=== PATIENT | male | born 1945 | race Two or more races ===

== ENCOUNTER 2017-09-13 14:08 | Inpatient (IN) | payer OTHER ==
[~2017-09-13 14:08] MED LIST: METOCLOPRAMIDE 10 MG INJ; ONDANSETRON 4 MG INJ
[2017-09-13] MEDS ORDERED: ROCURONIUM 50 MG INJ (14:51)
[2017-09-13] MEDS ORDERED: morphine SULFATE/PF (10 MG/10 ML) INJ (14:51)
[2017-09-13] MEDS ORDERED: PROPOFOL 20 ML (14:51)
[2017-09-13] MEDS ORDERED: CEFAZOLIN 1 GM INJ (14:51)
[2017-09-13] MEDS ORDERED: MIDAZOLAM 1 MG/ML 2 ML INJ (14:51)
[2017-09-13] MEDS ORDERED: FENTAnyl 50 MCG/ML VIAL (14:51)
[2017-09-13] MEDS ORDERED: POLYMYXIN/BACITRACIN 1L IRRIG ×2 (15:28→16:06)
[2017-09-13] MEDS ORDERED: ROPIVACAINE 0.5 % 30 ML VIAL (15:46)
[2017-09-13] MEDS ORDERED: PHENYLephrine (100 MCG/ML) 5ML SYG (15:47)
[2017-09-13] MEDS ORDERED: PHENYLephrine 10 MG INJ (15:47)
[2017-09-13] MEDS ORDERED: ACETAMINOPHEN 1000MG/100ML IV 100 ML (15:59)
[2017-09-13] MEDS ORDERED: METOCLOPRAMIDE 10 MG INJ (16:00)
[2017-09-13] MEDS: TRANEXAMIC ACID 1,000 MG/10 ML VIAL IV (16:00)
[2017-09-13] MEDS ORDERED: KETOROLAC 30 MG INJ (16:00)
[2017-09-13] MEDS ORDERED: ONDANSETRON 4 MG INJ (16:00)
[2017-09-13] MEDS ORDERED: DEXAMETHASONE 4 MG/ML 1 ML INJ (16:00)
[2017-09-13] MEDS: HETASTARCH 6% NACL 500 ML BAG IV* (16:22)
[2017-09-13] MEDS: POLYMYXIN/BACITRACIN 1L IRRIG IRR (16:22)
[2017-09-13] MEDS ORDERED: ACETAMINOPHEN 500 MG TAB PO (17:00)
[2017-09-13] MEDS ORDERED: EPHEDrine SULFATE 50 MG/5 ML SYG IV (17:00)
[2017-09-13] MEDS ORDERED: OXYCODONE/ACETAMINOPHEN (5/325) TAB PO ×2 (17:00)
[2017-09-13] MEDS ORDERED: METOCLOPRAMIDE 10 MG INJ IV (17:00)
[2017-09-13] MEDS ORDERED: HYDROmorphONE (0.2 MG/ML) 10ML SYG IV ×3 (17:00)
[2017-09-13] MEDS ORDERED: morphine 2 MG INJ IV ×2 (17:00)
[2017-09-13] MEDS ORDERED: ONDANSETRON 4 MG INJ IV (17:00)
[2017-09-13] MEDS ORDERED: HYDROmorphONE 0.5 MG/0.5 ML SYG IV ×2 (17:00)
[2017-09-13] MEDS ORDERED: DIPHENHYDRAMINE 50 MG INJ IV (17:00)
[2017-09-13] MEDS ORDERED: hydrALAzine 20 MG INJ IV (17:00)
[2017-09-13] MEDS ORDERED: FENTAnyl 50 MCG/ML VIAL IV ×3 (17:00)
[2017-09-13] MEDS ORDERED: ALBUMIN HUMAN 5% 250 ML IV (17:00)
[2017-09-13] MEDS ORDERED: HYDROCODONE/APAP (5/325) TAB PO (17:00)
[2017-09-13] MEDS ORDERED: NALOXONE (0.4 MG/ML) INJ IV (17:00)
[2017-09-13] MEDS ORDERED: MEPERIDINE 25 MG INJ IV (17:00)
[2017-09-13] MEDS ORDERED: NALBUPHINE HCL (10 MG/1 ML) INJ IV (17:00)
[2017-09-13] MEDS ORDERED: LABETALOL HCL 20MG INJ IV (17:00)
[2017-09-13] MEDS ORDERED: HETASTARCH 6% NACL 500 ML (17:10)
[2017-09-13] MEDS: CEFAZOLIN 1 GM/50 ML (PMX) 50 ML IVPB ×2 (18:04→21:52)
[2017-09-13 18:24] LABS: HEMATOCRIT 36.2 % (42.0-52.0); HEMOGLOBIN 12.2 g/dl (14.0-18.0)
[2017-09-13 18:47] LABS: ANION GAP 10 (8-16); CARBON DIOXIDE 24 mmol/L (21-31); CHLORIDE 109 mmol/L (97-110); GLUCOSE 103 mg/dl (70-220)
[2017-09-13 18:51] LABS: BLOOD UREA NITROGEN 20 mg/dl (7-20); CREATININE 0.74 mg/dl (0.61-1.24); POTASSIUM 4.1 mmol/L (3.5-5.1); SODIUM 139 mmol/L (135-144)
[2017-09-13 18:53] LABS: CALCIUM 7.8 mg/dl (8.4-10.2)
[2017-09-13] MEDS: LACTATED RINGER'S 1,000 ML IV (21:43)
[2017-09-14] MEDS: ONDANSETRON 4 MG INJ IV (04:06)
[2017-09-14] MEDS: DIPHENHYDRAMINE 50 MG INJ IV (04:09)
[2017-09-14 05:08] LABS: ADD MAN DIFF? NO
[2017-09-14 05:11] LABS: BASOPHILS % 0.1 % (0.0-2.0); HEMATOCRIT 34.9 % (42.0-52.0); HEMOGLOBIN 11.6 g/dl (14.0-18.0); LYMPHOCYTES # 0.7 10^3/ul (0.8-2.9); LYMPHOCYTES % 4.6 % (15.0-51.0); MEAN CORPUSCULAR HEMOGLOBIN 29.7 pg (29.0-33.0); MEAN CORPUSCULAR HGB CONC 33.2 g/dl (32.0-37.0); MEAN CORPUSCULAR VOLUME 89.3 fl (82.0-101.0); MEAN PLATELET VOLUME 8.9 fl (7.4-10.4); MONOCYTE # 0.4 10^3/ul (0.3-0.9); MONOCYTES % 2.5 % (0.0-11.0); NEUTROPHIL # 13.6 10^3/ul (1.6-7.5); NEUTROPHILS % 92.3 % (39.0-77.0); PLATELET COUNT 276 10^3/UL (140-415); RED BLOOD COUNT 3.91 10^6/ul (4.70-6.10); RED CELL DISTRIBUTION WIDTH 15.6 % (11.5-14.5)
[2017-09-14 05:11] LABS: WHITE BLOOD COUNT 14.7 10^3/ul (4.8-10.8)
[2017-09-14] MEDS: CEFAZOLIN 1 GM/50 ML (PMX) 50 ML IVPB ×2 (05:30→13:35)
[2017-09-14] MEDS: PANTOPRAZOLE (EC) 40 MG TAB PO (05:30)
[2017-09-14 05:44] LABS: ALANINE AMINOTRANSFERASE 33 IU/L (13-69); ALBUMIN/GLOBULIN RATIO 0.96; ALKALINE PHOSPHATASE 65 IU/L (42-121); ANION GAP 12 (8-16); ASPARTATE AMINO TRANSFERASE 31 IU/L (15-46); BILIRUBIN,INDIRECT 0.1 mg/dl (0-1.1); BILIRUBIN,TOTAL 0.1 mg/dl (0.2-1.3); BLOOD UREA NITROGEN 27 mg/dl (7-20); CARBON DIOXIDE 25 mmol/L (21-31); CHLORIDE 106 mmol/L (97-110); CREATININE 0.73 mg/dl (0.61-1.24); GLUCOSE 189 mg/dl (70-220); POTASSIUM 4.4 mmol/L (3.5-5.1); SODIUM 139 mmol/L (135-144); TOTAL PROTEIN 6.1 g/dl (6.1-8.1)
[2017-09-14] MEDS: LACTATED RINGER'S 1,000 ML IV (08:50)
[2017-09-14] MEDS: GABAPENTIN 100 MG CAP PO ×2 (09:05→21:11)
[2017-09-14] MEDS: FOLIC ACID 1 MG TAB PO (09:05)
[2017-09-14] MEDS ORDERED: morphine 2 MG INJ IV (09:30)
[2017-09-14] MEDS: ASPIRIN (EC) 325 MG TAB PO ×2 (10:20→21:10)
[2017-09-14] MEDS: HYDROCODONE/APAP (5/325) TAB PO (18:43)
[2017-09-14] MEDS: ATORVASTATIN 20 MG TAB PO (21:10)
[2017-09-14] MEDS: TAMSULOSIN (SR) 0.4 MG CAP PO (21:11)
[2017-09-15] MEDS: HYDROCODONE/APAP (5/325) TAB PO ×2 (04:30→11:26)
[2017-09-15] MEDS: PANTOPRAZOLE (EC) 40 MG TAB PO ×2 (05:05→20:43)
[2017-09-15 05:53] LABS: ADD MAN DIFF? NO
[2017-09-15 06:00] LABS: BASOPHILS % 0.3 % (0.0-2.0); EOSINOPHILS # 0.2 10^3/ul (0.0-0.5); EOSINOPHILS % 1.6 % (0.0-7.0); HEMATOCRIT 30.1 % (42.0-52.0); HEMOGLOBIN 10.3 g/dl (14.0-18.0); LYMPHOCYTES # 1.7 10^3/ul (0.8-2.9); LYMPHOCYTES % 14.6 % (15.0-51.0); MEAN CORPUSCULAR HEMOGLOBIN 30.1 pg (29.0-33.0); MEAN CORPUSCULAR HGB CONC 34.2 g/dl (32.0-37.0); MEAN PLATELET VOLUME 9.3 fl (7.4-10.4); MONOCYTE # 1.1 10^3/ul (0.3-0.9); MONOCYTES % 9.2 % (0.0-11.0); NEUTROPHIL # 8.8 10^3/ul (1.6-7.5); NEUTROPHILS % 73.8 % (39.0-77.0); PLATELET COUNT 236 10^3/UL (140-415); RED BLOOD COUNT 3.42 10^6/ul (4.70-6.10); RED CELL DISTRIBUTION WIDTH 15.5 % (11.5-14.5)
[2017-09-15 06:49] LABS: ANION GAP 8 (8-16); BLOOD UREA NITROGEN 27 mg/dl (7-20); CALCIUM 7.4 mg/dl (8.4-10.2); CARBON DIOXIDE 26 mmol/L (21-31); CHLORIDE 104 mmol/L (97-110); CREATININE 0.72 mg/dl (0.61-1.24); GLUCOSE 99 mg/dl (70-220); POTASSIUM 3.9 mmol/L (3.5-5.1); SODIUM 134 mmol/L (135-144)
[2017-09-15] MEDS: ASPIRIN (EC) 325 MG TAB PO ×2 (08:47→20:43)
[2017-09-15] MEDS: FOLIC ACID 1 MG TAB PO (08:47)
[2017-09-15] MEDS: GABAPENTIN 100 MG CAP PO ×2 (08:47→20:44)
[2017-09-15 16:15] LABS: ADD UMIC YES; UR ASCORBIC ACID NEGATIVE (NEGATIVE); UR BILIRUBIN (Dip) NEGATIVE (NEGATIVE); UR BLOOD (Dip) 2+ mg/dL (NEGATIVE); UR CLARITY CLEAR (CLEAR); UR COLOR STRAW (YELLOW); UR GLUCOSE (Dip) NEGATIVE (NEGATIVE); UR KETONES (Dip) NEGATIVE (NEGATIVE); UR LEUKOCYTE ESTERASE (Dip) NEGATIVE Leu/ul (NEGATIVE); UR NITRITE (Dip) NEGATIVE (NEGATIVE); UR RBC 3 /HPF (0-5); UR TOTAL PROTEIN (Dip) NEGATIVE (NEGATIVE); UR UROBILINOGEN (Dip) NEGATIVE (NEGATIVE); UR WBC 0 /HPF (0-5)
[2017-09-15] MEDS ORDERED: BISACODYL (EC) 5 MG TAB PO (19:30)
[2017-09-15] MEDS: POLYETHYLENE GLYCOL 17 GM PACKET PO (20:43)
[2017-09-15] MEDS: TAMSULOSIN (SR) 0.4 MG CAP PO (20:43)
[2017-09-15] MEDS: ATORVASTATIN 20 MG TAB PO (20:43)
[2017-09-16] MEDS: PANTOPRAZOLE (EC) 40 MG TAB PO (06:04)
[2017-09-16 06:13] LABS: ADD MAN DIFF? NO
[2017-09-16 06:19] LABS: WHITE BLOOD COUNT 9.5 10^3/ul (4.8-10.8)
[2017-09-16 06:19] LABS: BASOPHIL # 0.1 10^3/ul (0.0-0.1); BASOPHILS % 0.6 % (0.0-2.0); EOSINOPHILS # 0.3 10^3/ul (0.0-0.5); EOSINOPHILS % 2.8 % (0.0-7.0); HEMATOCRIT 31.8 % (42.0-52.0); LYMPHOCYTES # 1.3 10^3/ul (0.8-2.9); LYMPHOCYTES % 14.1 % (15.0-51.0); MEAN CORPUSCULAR HEMOGLOBIN 30.2 pg (29.0-33.0); MEAN CORPUSCULAR HGB CONC 34.6 g/dl (32.0-37.0); MEAN CORPUSCULAR VOLUME 87.4 fl (82.0-101.0); MEAN PLATELET VOLUME 9.6 fl (7.4-10.4); MONOCYTES % 10.4 % (0.0-11.0); NEUTROPHIL # 6.8 10^3/ul (1.6-7.5); NEUTROPHILS % 71.7 % (39.0-77.0); PLATELET COUNT 236 10^3/UL (140-415); RED BLOOD COUNT 3.64 10^6/ul (4.70-6.10); RED CELL DISTRIBUTION WIDTH 15.2 % (11.5-14.5)
[2017-09-16 06:52] LABS: ANION GAP 11 (8-16); BLOOD UREA NITROGEN 16 mg/dl (7-20); CALCIUM 8.3 mg/dl (8.4-10.2); CARBON DIOXIDE 26 mmol/L (21-31); CHLORIDE 101 mmol/L (97-110); CREATININE 0.66 mg/dl (0.61-1.24); GLUCOSE 126 mg/dl (70-220); POTASSIUM 3.8 mmol/L (3.5-5.1); SODIUM 134 mmol/L (135-144)
[2017-09-16] MEDS: GABAPENTIN 100 MG CAP PO (09:09)
[2017-09-16] MEDS: FOLIC ACID 1 MG TAB PO (09:09)
[2017-09-16] MEDS: POLYETHYLENE GLYCOL 17 GM PACKET PO (09:09)
[2017-09-16] MEDS: ASPIRIN (EC) 325 MG TAB PO (09:09)
[2017-09-16] MEDS: HYDROCODONE/APAP (5/325) TAB PO ×2 (09:41→14:56)
== END 2017-09-16 15:40 | disposition home health service (06) | DRG 470 ==
LOC: REC 14:08 → MS1 20:10
PROC: 0SRC069 Replacement of Right Knee Joint with Oxidized Zirconium on Polyethylene Synthetic Substitute, Cemented, Open Approach (ICD-10-PCS; principal; 2017-09-13 15:37)
DX: M17.11 Unilateral primary osteoarthritis, right knee (principal); G62.9 Polyneuropathy, unspecified; E78.5 Hyperlipidemia, unspecified; N40.0 Benign prostatic hyperplasia without lower urinary tract symptoms; D72.829 Elevated white blood cell count, unspecified
CPT/HCPCS: 80048; 80053; 81001; 85014; 85018; 85025; 87086; 88304; 88311; 97110; 97116; 97163; 97167; 97530

== ENCOUNTER 2018-04-10 19:55 | Inpatient (IN) | payer OTHER ==
[2018-04-11] MEDS: HYDROCODONE/APAP (5/325) TAB PO ×3 (00:53→19:48)
[2018-04-11 04:06] LABS: ADD MAN DIFF? NO
[2018-04-11 04:08] LABS: BASOPHILS % 0.4 % (0.0-2.0); EOSINOPHILS # 0.3 10^3/ul (0.0-0.5); HEMATOCRIT 30.6 % (42.0-52.0); HEMOGLOBIN 10.4 g/dl (14.0-18.0); LYMPHOCYTES # 2.3 10^3/ul (0.8-2.9); LYMPHOCYTES % 25.6 % (15.0-51.0); MEAN CORPUSCULAR HEMOGLOBIN 29.8 pg (29.0-33.0); MEAN CORPUSCULAR VOLUME 87.7 fl (82.0-101.0); MEAN PLATELET VOLUME 8.6 fl (7.4-10.4); MONOCYTE # 0.7 10^3/ul (0.3-0.9); MONOCYTES % 8.3 % (0.0-11.0); NEUTROPHIL # 5.6 10^3/ul (1.6-7.5); NEUTROPHILS % 62.4 % (39.0-77.0); PLATELET COUNT 213 10^3/UL (140-415); RED BLOOD COUNT 3.49 10^6/ul (4.70-6.10); RED CELL DISTRIBUTION WIDTH 15.5 % (11.5-14.5)
[2018-04-11 04:08] LABS: WHITE BLOOD COUNT 8.9 10^3/ul (4.8-10.8)
[2018-04-11 04:28] LABS: ALANINE AMINOTRANSFERASE 22 IU/L (13-69); ALBUMIN 3.2 g/dl (3.3-4.9); ALKALINE PHOSPHATASE 66 IU/L (42-121); ANION GAP 10 (8-16); ASPARTATE AMINO TRANSFERASE 22 IU/L (15-46); BILIRUBIN,INDIRECT 0.9 mg/dl (0-1.1); BILIRUBIN,TOTAL 0.9 mg/dl (0.2-1.3); BLOOD UREA NITROGEN 25 mg/dl (7-20); CALCIUM 8.2 mg/dl (8.4-10.2); CARBON DIOXIDE 25 mmol/L (21-31); CHLORIDE 110 mmol/L (97-110); CREATININE 0.79 mg/dl (0.61-1.24); GLUCOSE 101 mg/dl (70-220); INR 1.03; LIPASE 38 U/L (23-300); POTASSIUM 3.7 mmol/L (3.5-5.1); PROTIME 13.6 Sec (11.9-14.9); PT RATIO 1.1; SODIUM 141 mmol/L (135-144); TOTAL PROTEIN 6.4 g/dl (6.1-8.1)
[2018-04-11 04:29] LABS: PARTIAL THROMBOPLASTIN TIME 30.9 Sec (25.0-35.0)
[2018-04-11] MEDS ORDERED: ACETAMINOPHEN 325 MG TAB PO (07:00)
[2018-04-11] MEDS ORDERED: morphine 2 MG INJ IV (07:00)
[2018-04-11] MEDS: DEXTROSE 5%-0.9% NACL 1,000 ML IV ×2 (07:40→21:18)
[2018-04-11 15:25] LABS: CREATINE KINASE 214 IU/L (23-200)
[2018-04-11 15:39] LABS: CK INDEX 1.1; CK-MB 2.29 ng/ml (0.0-2.4); TROPONIN-I < 0.012 ng/ml (0.000-0.120)
[2018-04-11] MEDS: ATORVASTATIN 20 MG TAB PO (21:57)
[2018-04-11] MEDS: GABAPENTIN 100 MG CAP PO (21:58)
[2018-04-12 05:25] LABS: CHOLESTEROL 127 mg/dl (100-200)
[2018-04-12 05:25] LABS: CHOL/HDL RATIO 3.5 RATIO; HDL CHOLESTEROL 36 mg/dl (31-75); LDL CHOLESTEROL,CALCULATED 70 mg/dl; TRIGLYCERIDES 103 mg/dl (0-149)
[2018-04-12] MEDS: PANTOPRAZOLE 40 MG INJ IV (05:43)
[2018-04-12] MEDS: DEXTROSE 5%-0.9% NACL 1,000 ML IV ×2 (05:44→20:36)
[2018-04-12] MEDS: ONDANSETRON 4 MG INJ IV (08:43)
[2018-04-12] MEDS: GABAPENTIN 100 MG CAP PO ×2 (08:43→20:37)
[2018-04-12] MEDS: FOLIC ACID 1 MG TAB PO (08:43)
[2018-04-12 14:19] LABS: TROPONIN-I < 0.012 ng/ml (0.000-0.120)
[2018-04-12] MEDS: HYDROCODONE/APAP (5/325) TAB PO (14:58)
[2018-04-12] MEDS: TAMSULOSIN (SR) 0.4 MG CAP PO (20:37)
[2018-04-12] MEDS: ATORVASTATIN 20 MG TAB PO (20:37)
[2018-04-13] MEDS: HYDROCODONE/APAP (5/325) TAB PO ×2 (00:20→19:32)
[2018-04-13] MEDS: PANTOPRAZOLE 40 MG INJ IV (05:11)
[2018-04-13] MEDS: GABAPENTIN 100 MG CAP PO ×3 (09:00→21:14)
[2018-04-13] MEDS: FOLIC ACID 1 MG TAB PO ×2 (09:00→09:33)
[2018-04-13] MEDS: morphine LIQ (10 MG/5 ML) CUP PO (09:28)
[2018-04-13] MEDS: DEXTROSE 5%-0.9% NACL 1,000 ML IV (12:27)
[2018-04-13] MEDS ORDERED: POLYMYXIN/BACITRACIN 1L IRRIG (14:05)
[2018-04-13] MEDS: TAMSULOSIN (SR) 0.4 MG CAP PO (21:14)
[2018-04-13] MEDS: ATORVASTATIN 20 MG TAB PO (21:14)
[2018-04-14] MEDS: PANTOPRAZOLE 40 MG INJ IV (05:23)
[2018-04-14 06:14] LABS: ADD MAN DIFF? NO
[2018-04-14 06:17] LABS: WHITE BLOOD COUNT 8.2 10^3/ul (4.8-10.8)
[2018-04-14 06:17] LABS: BASOPHILS % 0.2 % (0.0-2.0); EOSINOPHILS # 0.3 10^3/ul (0.0-0.5); EOSINOPHILS % 3.4 % (0.0-7.0); HEMATOCRIT 29.1 % (42.0-52.0); HEMOGLOBIN 9.8 g/dl (14.0-18.0); LYMPHOCYTES # 1.5 10^3/ul (0.8-2.9); LYMPHOCYTES % 18.3 % (15.0-51.0); MEAN CORPUSCULAR HEMOGLOBIN 29.6 pg (29.0-33.0); MEAN CORPUSCULAR HGB CONC 33.7 g/dl (32.0-37.0); MEAN CORPUSCULAR VOLUME 87.9 fl (82.0-101.0); MONOCYTE # 0.8 10^3/ul (0.3-0.9); MONOCYTES % 9.6 % (0.0-11.0); NEUTROPHIL # 5.6 10^3/ul (1.6-7.5); NEUTROPHILS % 68.3 % (39.0-77.0); PLATELET COUNT 275 10^3/UL (140-415); RED BLOOD COUNT 3.31 10^6/ul (4.70-6.10); RED CELL DISTRIBUTION WIDTH 15.1 % (11.5-14.5)
[2018-04-14] MEDS: DEXTROSE 5%-0.9% NACL 1,000 ML IV ×2 (06:30→10:21)
[2018-04-14 06:55] LABS: ANION GAP 9 (8-16); BLOOD UREA NITROGEN 10 mg/dl (7-20); CALCIUM 8.4 mg/dl (8.4-10.2); CARBON DIOXIDE 28 mmol/L (21-31); CHLORIDE 104 mmol/L (97-110); CREATININE 0.77 mg/dl (0.61-1.24); GLUCOSE 107 mg/dl (70-220); POTASSIUM 4.1 mmol/L (3.5-5.1); SODIUM 137 mmol/L (135-144)
[2018-04-14] MEDS ORDERED: GLYCOPYRROLATE 0.4 MG INJ (07:00)
[2018-04-14] MEDS ORDERED: HETASTARCH 6% NACL 500 ML BAG (07:00)
[2018-04-14] MEDS ORDERED: NEOSTIGMINE 3 MG/3 ML SYRINGE (07:00)
[2018-04-14] MEDS ORDERED: KETOROLAC 30 MG INJ (07:00)
[2018-04-14] MEDS: GABAPENTIN 100 MG CAP PO ×2 (09:00→21:02)
[2018-04-14] MEDS: FOLIC ACID 1 MG TAB PO (09:00)
[2018-04-14] MEDS: HYDROCODONE/APAP (5/325) TAB PO (10:38)
[2018-04-14] MEDS ORDERED: CEFAZOLIN 1 GM INJ (13:30)
[2018-04-14] MEDS ORDERED: PROPOFOL 20 ML (13:30)
[2018-04-14] MEDS ORDERED: ROCURONIUM 50 MG INJ (13:30)
[2018-04-14] MEDS ORDERED: morphine SULFATE/PF (10 MG/10 ML) INJ (13:30)
[2018-04-14] MEDS ORDERED: MIDAZOLAM 1 MG/ML 2 ML INJ (13:30)
[2018-04-14] MEDS ORDERED: BUPIVACAINE 0.75%/DEXT (SPINAL) 2 ML INJ (13:30)
[2018-04-14] MEDS ORDERED: FENTAnyl 50 MCG/ML VIAL ×2 (13:30→16:47)
[2018-04-14] MEDS ORDERED: PHENYLephrine (100 MCG/ML) 5ML SYG ×3 (13:31→15:23)
[2018-04-14] MEDS: POLYMYXIN/BACITRACIN 1L IRRIG IRR (14:38)
[2018-04-14] MEDS ORDERED: ONDANSETRON 4 MG INJ (14:57)
[2018-04-14] MEDS ORDERED: DEXAMETHASONE 4 MG/ML 1 ML INJ ×2 (14:57→14:58)
[2018-04-14] MEDS ORDERED: METOCLOPRAMIDE 10 MG INJ (14:57)
[2018-04-14] MEDS ORDERED: ACETAMINOPHEN 1000MG/100ML IV 100 ML (15:02)
[2018-04-14] MEDS ORDERED: hydrALAzine 20 MG INJ IV (16:30)
[2018-04-14] MEDS ORDERED: HYDROmorphONE 0.5 MG/0.5 ML SYG IV ×2 (16:30)
[2018-04-14] MEDS ORDERED: NALBUPHINE HCL (10 MG/1 ML) INJ IV (16:30)
[2018-04-14] MEDS ORDERED: ONDANSETRON 4 MG INJ IV ×2 (16:30)
[2018-04-14] MEDS ORDERED: METOCLOPRAMIDE 10 MG INJ IV (16:30)
[2018-04-14] MEDS ORDERED: MEPERIDINE 25 MG INJ IV (16:30)
[2018-04-14] MEDS ORDERED: DIPHENHYDRAMINE 50 MG INJ IV (16:30)
[2018-04-14] MEDS ORDERED: OXYCODONE/ACETAMINOPHEN (5/325) TAB PO (16:30)
[2018-04-14] MEDS ORDERED: HYDROCODONE/APAP (5/325) TAB PO (16:30)
[2018-04-14] MEDS ORDERED: LABETALOL HCL 20MG INJ IV (16:30)
[2018-04-14] MEDS ORDERED: NALOXONE (0.4 MG/ML) INJ IV ×2 (16:30→17:00)
[2018-04-14] MEDS ORDERED: morphine 2 MG INJ IV ×2 (16:30)
[2018-04-14] MEDS ORDERED: ACETAMINOPHEN 500 MG TAB PO (16:30)
[2018-04-14] MEDS ORDERED: HYDROmorphONE 1 MG/5 ML IV SYRINGE IV ×2 (16:30)
[2018-04-14] MEDS ORDERED: FENTAnyl 50 MCG/ML VIAL IV ×2 (16:30)
[2018-04-14] MEDS ORDERED: ROPIVACAINE 0.5 % 30 ML VIAL (16:35)
[2018-04-14] MEDS ORDERED: LABETALOL HCL 20MG INJ (16:43)
[2018-04-14] MEDS ORDERED: morphine 4 MG/ML VIAL IV (17:00)
[2018-04-14] MEDS ORDERED: ALBUMIN HUMAN 5% 250 ML (17:15)
[2018-04-14 17:16] LABS: ADD MAN DIFF? NO
[2018-04-14 17:30] LABS: ANION GAP 6 (8-16); BLOOD UREA NITROGEN 9 mg/dl (7-20); CALCIUM 7.3 mg/dl (8.4-10.2); CARBON DIOXIDE 27 mmol/L (21-31); CHLORIDE 110 mmol/L (97-110); CREATININE 0.82 mg/dl (0.61-1.24); GLUCOSE 134 mg/dl (70-220); POTASSIUM 4.3 mmol/L (3.5-5.1); SODIUM 139 mmol/L (135-144)
[2018-04-14] MEDS ORDERED: ALBUMIN HUMAN 5% 250 ML IV (17:30)
[2018-04-14] MEDS: CEFAZOLIN 1 GM/50 ML (PMX) 50 ML IVPB (17:46)
[2018-04-14 17:49] LABS: WHITE BLOOD COUNT 7.3 10^3/ul (4.8-10.8)
[2018-04-14 17:49] LABS: BASOPHILS % 0.3 % (0.0-2.0); EOSINOPHILS # 0.2 10^3/ul (0.0-0.5); EOSINOPHILS % 2.1 % (0.0-7.0); HEMATOCRIT 23.5 % (42.0-52.0); HEMOGLOBIN 7.9 g/dl (14.0-18.0); LYMPHOCYTES # 1.2 10^3/ul (0.8-2.9); LYMPHOCYTES % 16.1 % (15.0-51.0); MEAN CORPUSCULAR HEMOGLOBIN 30.5 pg (29.0-33.0); MEAN CORPUSCULAR HGB CONC 33.6 g/dl (32.0-37.0); MEAN CORPUSCULAR VOLUME 90.7 fl (82.0-101.0); MEAN PLATELET VOLUME 8.9 fl (7.4-10.4); MONOCYTE # 0.3 10^3/ul (0.3-0.9); MONOCYTES % 3.6 % (0.0-11.0); NEUTROPHIL # 5.6 10^3/ul (1.6-7.5); NEUTROPHILS % 77.1 % (39.0-77.0); PLATELET COUNT 222 10^3/UL (140-415); RED BLOOD COUNT 2.59 10^6/ul (4.70-6.10); RED CELL DISTRIBUTION WIDTH 15.4 % (11.5-14.5)
[2018-04-14] MEDS: EPHEDrine SULFATE 50 MG/5 ML SYG IV (18:02)
[2018-04-14] MEDS: ATORVASTATIN 20 MG TAB PO (21:02)
[2018-04-14] MEDS: D5W-0.45 NACL + KCL 20 MEQ 1,000 ML IV (21:02)
[2018-04-14] MEDS: TAMSULOSIN (SR) 0.4 MG CAP PO (21:02)
[2018-04-14 21:41] LABS: IMMEDIATE SPIN CROSSMATCH 1 4
[2018-04-15] MEDS: CEFAZOLIN 1 GM/50 ML (PMX) 50 ML IVPB ×2 (01:24→08:29)
[2018-04-15] MEDS: D5W-0.45 NACL + KCL 20 MEQ 1,000 ML IV ×4 (02:37→22:37)
[2018-04-15 05:31] LABS: ADD MAN DIFF? NO
[2018-04-15 05:32] LABS: WHITE BLOOD COUNT 9.5 10^3/ul (4.8-10.8)
[2018-04-15 05:32] LABS: ABNORMAL IP MESSAGE 1; HEMOGLOBIN 9.4 g/dl (14.0-18.0); LYMPHOCYTES # 0.5 10^3/ul (0.8-2.9); LYMPHOCYTES % 5.6 % (15.0-51.0); MEAN CORPUSCULAR HEMOGLOBIN 29.5 pg (29.0-33.0); MEAN CORPUSCULAR HGB CONC 33.6 g/dl (32.0-37.0); MEAN CORPUSCULAR VOLUME 87.8 fl (82.0-101.0); MEAN PLATELET VOLUME 9.1 fl (7.4-10.4); MONOCYTE # 0.6 10^3/ul (0.3-0.9); MONOCYTES % 6.1 % (0.0-11.0); NEUTROPHIL # 8.4 10^3/ul (1.6-7.5); NEUTROPHILS % 88.1 % (39.0-77.0); PLATELET COUNT 210 10^3/UL (140-415); POSITIVE DIFF @See below; RED BLOOD COUNT 3.19 10^6/ul (4.70-6.10); RED CELL DISTRIBUTION WIDTH 14.8 % (11.5-14.5)
[2018-04-15] MEDS: PANTOPRAZOLE 40 MG INJ IV (05:40)
[2018-04-15 06:24] LABS: ANION GAP 9 (8-16); BLOOD UREA NITROGEN 12 mg/dl (7-20); CALCIUM 7.8 mg/dl (8.4-10.2); CARBON DIOXIDE 27 mmol/L (21-31); CHLORIDE 105 mmol/L (97-110); CREATININE 0.71 mg/dl (0.61-1.24); GLUCOSE 190 mg/dl (70-220); POTASSIUM 4.3 mmol/L (3.5-5.1); SODIUM 137 mmol/L (135-144)
[2018-04-15] MEDS: FOLIC ACID 1 MG TAB PO (08:29)
[2018-04-15] MEDS: GABAPENTIN 100 MG CAP PO ×2 (08:29→21:04)
[2018-04-15] MEDS: ENOXAPARIN 40 MG/0.4 ML SYG SC (08:32)
[2018-04-15] MEDS: HYDROCODONE/APAP (5/325) TAB PO ×2 (08:37→21:04)
[2018-04-15] MEDS: METOCLOPRAMIDE 10 MG INJ IV (14:17)
[2018-04-15] MEDS ORDERED: ACETAMINOPHEN 325 MG TAB PO (21:00)
[2018-04-15] MEDS ORDERED: morphine LIQ (10 MG/5 ML) CUP PO (21:00)
[2018-04-15] MEDS: ATORVASTATIN 20 MG TAB PO (21:04)
[2018-04-15] MEDS: TAMSULOSIN (SR) 0.4 MG CAP PO (21:06)
[2018-04-16 05:06] LABS: ADD MAN DIFF? NO
[2018-04-16 05:15] LABS: BASOPHILS % 0.2 % (0.0-2.0); EOSINOPHILS # 0.1 10^3/ul (0.0-0.5); EOSINOPHILS % 1.5 % (0.0-7.0); HEMATOCRIT 24.9 % (42.0-52.0); HEMOGLOBIN 8.4 g/dl (14.0-18.0); LYMPHOCYTES # 1.5 10^3/ul (0.8-2.9); LYMPHOCYTES % 16.1 % (15.0-51.0); MEAN CORPUSCULAR HGB CONC 33.7 g/dl (32.0-37.0); MEAN CORPUSCULAR VOLUME 88.9 fl (82.0-101.0); MONOCYTE # 0.7 10^3/ul (0.3-0.9); MONOCYTES % 7.6 % (0.0-11.0); NEUTROPHIL # 6.8 10^3/ul (1.6-7.5); NEUTROPHILS % 74.1 % (39.0-77.0); PLATELET COUNT 212 10^3/UL (140-415); RED CELL DISTRIBUTION WIDTH 15.6 % (11.5-14.5)
[2018-04-16 05:15] LABS: WHITE BLOOD COUNT 9.2 10^3/ul (4.8-10.8)
[2018-04-16 05:41] LABS: ANION GAP 9 (8-16); BLOOD UREA NITROGEN 16 mg/dl (7-20); CALCIUM 7.5 mg/dl (8.4-10.2); CARBON DIOXIDE 27 mmol/L (21-31); CHLORIDE 107 mmol/L (97-110); CREATININE 0.78 mg/dl (0.61-1.24); GLUCOSE 110 mg/dl (70-220); POTASSIUM 3.6 mmol/L (3.5-5.1); SODIUM 139 mmol/L (135-144)
[2018-04-16] MEDS: HYDROCODONE/APAP (5/325) TAB PO ×2 (06:20→09:47)
[2018-04-16] MEDS: PANTOPRAZOLE 40 MG INJ IV (06:21)
[2018-04-16] MEDS: D5W-0.45 NACL + KCL 20 MEQ 1,000 ML IV (06:21)
[2018-04-16] MEDS ORDERED: ENOXAPARIN 40 MG/0.4 ML SYG SC (09:00)
[2018-04-16] MEDS: FOLIC ACID 1 MG TAB PO (09:47)
[2018-04-16] MEDS: GABAPENTIN 100 MG CAP PO ×2 (09:47→20:53)
[2018-04-16] MEDS: ENOXAPARIN 40 MG/0.4 ML SYG SC (09:48)
[2018-04-16] MEDS: ATORVASTATIN 20 MG TAB PO (20:53)
[2018-04-16] MEDS: TAMSULOSIN (SR) 0.4 MG CAP PO (20:55)
[2018-04-17] MEDS: PANTOPRAZOLE 40 MG INJ IV (05:41)
[2018-04-17] MEDS: HYDROCODONE/APAP (5/325) TAB PO ×3 (05:46→19:54)
[2018-04-17] MEDS: GABAPENTIN 100 MG CAP PO ×2 (09:08→21:17)
[2018-04-17] MEDS: FOLIC ACID 1 MG TAB PO (09:08)
[2018-04-17] MEDS: ENOXAPARIN 40 MG/0.4 ML SYG SC (09:09)
[2018-04-17] MEDS: ATORVASTATIN 20 MG TAB PO (21:17)
[2018-04-17] MEDS: TAMSULOSIN (SR) 0.4 MG CAP PO (21:17)
[2018-04-18] MEDS: PANTOPRAZOLE 40 MG INJ IV (05:45)
[2018-04-18] MEDS: HYDROCODONE/APAP (5/325) TAB PO ×2 (05:47→19:45)
[2018-04-18] MEDS: DOCUSATE SODIUM 100 MG CAP PO (08:01)
[2018-04-18] MEDS: FOLIC ACID 1 MG TAB PO (08:01)
[2018-04-18] MEDS: GABAPENTIN 100 MG CAP PO ×2 (08:01→20:13)
[2018-04-18] MEDS: ENOXAPARIN 40 MG/0.4 ML SYG SC (08:03)
[2018-04-18] MEDS: POLYETHYLENE GLYCOL 17 GM PACKET PO (08:04)
[2018-04-18] MEDS: ATORVASTATIN 20 MG TAB PO (20:13)
[2018-04-18] MEDS: TAMSULOSIN (SR) 0.4 MG CAP PO (20:13)
== END 2018-04-18 20:20 | disposition home health service (06) | DRG 481 ==
LOC: E/R 19:55 → MS1 04-11 05:18
PROC: 0QSB04Z Reposition Right Lower Femur with Internal Fixation Device, Open Approach (ICD-10-PCS; principal; 2018-04-14 13:25)
DX: M97.01XA Periprosthetic fracture around internal prosthetic right hip joint, initial encounter (principal); S72.451A Displaced supracondylar fracture without intracondylar extension of lower end of right femur, initial encounter for closed fracture; M06.9 Rheumatoid arthritis, unspecified; E78.5 Hyperlipidemia, unspecified; D64.9 Anemia, unspecified; Z79.02 Long term (current) use of antithrombotics/antiplatelets; M81.0 Age-related osteoporosis without current pathological fracture; N40.0 Benign prostatic hyperplasia without lower urinary tract symptoms
CPT/HCPCS: 36430; 71045; 73550; 73562; 80048; 80053; 80061; 82550; 82553; 83690; 84484; 85025; 85610; 85730; 86850; 86900; 86901; 86920; 93005; 93306; 97116; 97162; 97530; 99285-25

== ENCOUNTER → 2019-04-01 | Outpatient (CLI) | payer MEDICARE, OTHER | END | disposition home or self-care (01) | LOC: C/S 15:46 | DX: M25.561 Pain in right knee (principal); M25.461 Effusion, right knee; Z96.651 Presence of right artificial knee joint | CPT/HCPCS: 73700 ==